=== PATIENT | female | born 1965 | race Caucasian/White ===

== ENCOUNTER 2023-07-24 09:41 | Outpatient (CLI) | payer OTHER, SELFPAY ==
[2023-07-24 16:28] LABS: SARS PCR* Negative SARS-CoV-2 (Negative)
== END 2023-07-24 09:42 | disposition home or self-care (01) ==
LOC: KYNREF 09:41
PROVIDERS: PCP Nurse Practitioner Family; Visit Provider Nurse Practitioner Family
DX: Z11.52 Encounter for screening for COVID-19 (principal); J11.1 Influenza due to unidentified influenza virus with other respiratory manifestations
CPT/HCPCS: 87635

== ENCOUNTER 2024-06-02 08:55 | Outpatient (CLI) | payer OTHER, SELFPAY | END 2024-06-02 08:56 | disposition home or self-care (01) | PROVIDERS: PCP Nurse Practitioner Family; Visit Provider Nurse Practitioner Family | DX: Z86.39 Personal history of other endocrine, nutritional and metabolic disease (principal); Z13.220 Encounter for screening for lipoid disorders; Z13.29 Encounter for screening for other suspected endocrine disorder | CPT/HCPCS: 80061; 84443 ==

== ENCOUNTER 2024-09-22 17:09 | Outpatient (CLI) | payer OTHER, SELFPAY | END 2024-09-22 17:10 | disposition home or self-care (01) | PROVIDERS: PCP Nurse Practitioner Family; Visit Provider Nurse Practitioner Family | DX: E78.5 Hyperlipidemia, unspecified (principal) | CPT/HCPCS: 80061 ==

== ENCOUNTER 2024-12-29 10:40 | Outpatient (CLI) | payer OTHER, SELFPAY ==
--- NOTE | 2024-12-29 11:15 | CRLHL7_ITS ---
For Patients: As a result of the Century Cures Act, medical imaging exams and procedure reports are released immediately into your electronic medical record. You may view this report before your referring provider. If you have questions, please contact your health care provider. Indication: Bilateral lower extremity pain and swelling after recent traveling. Technique: Real-time longitudinal and transverse sonographic grayscale imaging with and without compression, as well as color, duplex, and spectral Doppler imaging before and after augmentation, was obtained of the deep system of the bilateral lower extremities, including the common femoral, femoral, popliteal, posterior tibial, and peroneal veins. Comparison: None. Findings: Right lower extremity: Common femoral vein: No evidence of thrombus. Femoral vein: No evidence of thrombus. Popliteal vein: No evidence of thrombus. Calf veins: Patent. Left lower extremity: Common femoral vein: No evidence of thrombus. Femoral vein: No evidence of thrombus. Popliteal vein: No evidence of thrombus. Calf veins: Patent. Varicose veins are visualized in the areas of pain and swelling without evidence of superficial venous thrombus, such as in the left lower calf and right distal thigh and below the ankle. Impression: 1. No ultrasound evidence of deep venous thrombosis. 2. Varicose veins are visualized in the areas of pain and swelling without evidence of superficial venous thrombus, such as in the left lower calf and right distal thigh and below the ankle. Dictated by Nikunj Trejo MD @ 12/29/2024 11:59:05 AM (Electronically Signed)
== END 2024-12-29 10:41 | disposition home or self-care (01) ==
LOC: US 10:42
PROVIDERS: PCP Nurse Practitioner Family; Visit Provider Nurse Practitioner Family
DX: M79.604 Pain in right leg (principal); I83.813 Varicose veins of bilateral lower extremities with pain; M79.605 Pain in left leg; M79.89 Other specified soft tissue disorders
CPT/HCPCS: 93970

== ENCOUNTER 2025-07-18 17:19 | Outpatient (CLI) | payer OTHER, SELFPAY | END 2025-07-18 17:20 | disposition home or self-care (01) | LOC: KYNREF 17:21 | PROVIDERS: PCP Nurse Practitioner Family; Visit Provider Nurse Practitioner Family | DX: R82.90 Unspecified abnormal findings in urine (principal) | CPT/HCPCS: 87086 ==

== ENCOUNTER 2025-07-20 09:47 | Outpatient (CLI) | payer OTHER, SELFPAY | END 2025-07-20 09:48 | disposition home or self-care (01) | PROVIDERS: PCP Nurse Practitioner Family; Visit Provider Nurse Practitioner Family | DX: Z00.00 Encounter for general adult medical examination without abnormal findings (principal); Z13.21 Encounter for screening for nutritional disorder; Z12.31 Encounter for screening mammogram for malignant neoplasm of breast | CPT/HCPCS: 80053; 80061; 82306; 84443; 85025 ==

== ENCOUNTER 2025-09-01 16:41 | Emergency (ER) | payer OTHER, SELFPAY ==
--- OUTSIDE RECORDS SUMMARY | 2025-09-01 16:43 | XMS_ITS | Clinical Summary ---
Author Organization [facility] Address [address] [place] [address] Care Team Providers Care Web Assistant Name Role Phone , [facility] Primary Care Provider [phone] Allergies Active Allergy Reactions Criticality Noted Date Comments Penicillins Hives 06/22/2007 Medications acetaminophen (TYLENOL) 325 mg tablet Take by mouth. Activ e sertraline (ZOLOFT) 50 mg tablet TAKE 1 & 1/2 (ONE & ONE-HALF) TABLETS BY MOUTH ONCE DAILY FOR DEPRESSION Active triamcinolone 0.5% (ARISTOCORT) 0.5 % cream APPLY TOPICALLY TWICE DAILY 4 Active albuterol HFA (PRO-AIR; VENTOLIN; PROVENTIL) 90 mcg/actuation inhalerIndications :Wheezing,SOB (shortness of breath) Inhale 1-2 Puffs by mouth every 4 hours if needed for Shortness Of Breath or Wheezing. 1 Each 4 Active benzonatate (TESSALON) 200 mg capsuleIndications :Cough, unspecified type Take 1 Capsule (200 mg) by mouth 3 times daily if needed for Cough. 21 Capsule 4 Active ondansetron (ZOFRAN ODT) 4 mg disintegrating tabletIndications: Nausea Place 1 Tablet (4 mg) on the tongue every 8 hours if needed for Nausea/Vomitin g. 15 Tablet 4 Active Active Problems Problem Noted Date Diagnosed Date Endometriosis, site unspecified 06/22/2007 Family History Medical History Relation Name Comments Heart Disease Brother 1 Heart Disease Brother 2 No Known Problems Brother 4 No Known Problems Brother 5 No Known Problems Brother 6 No Known Problems Brother 7 Heart failure Father Heart Disease Mother Hypertension Mother Stroke Mother No Known Problems Sister 1 No Known Problems Sister 2 No Known Problems Sister 3 No Known Problems Sister 4 No Known Problems Sister 5 Relation Name Status Comments Brother 1 Alive Brother 2 Alive Brother 3 Alive Brother 4 Alive Brother 5 Alive Brother 6 Alive Brother 7 Alive Father Mother Sister 1 Alive Sister 2 Alive Sister 3 Alive Sister 4 Alive Sister 5 Alive Social History Tobacco Use Types Packs/Day Years Used Date Smoking Tobacco: Never Smokeless Tobacco: Never Alcohol Use Standard Drinks/Week Comments No 0 (1 standard drink = 0.6 oz pur e alcohol) Comments No Sex and Gender Information Value Date Recorded Sex Assigned at Not on file Legal Sex Female 6:12 AM DEHYDROGENATION OPERATOR HEAD Gender Identity Not on file Sexual Orientation Not on file 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 Not on file Not on file Not on file Obstetrics History Para Term AB IAB SAB Ectopic Multiple Livin g Live Births 2 1 1 0 0 0 0 0 1 1 Date Outcome GA Total Labor Labor/2nd/3rd Weight Sex Type Anes PTL Morena A1 A5 Name Clin Term 2002 40w 0d 3.7 kg (8 lb 2.4 oz) F Vag Livin g Amaris Jesse son Delivery Location:[facility] Comments:Back Pain Last Filed Vital Signs Vital Sign Reading Time Taken Comments Blood Pressure 126/72 01/14/2024 5:45 PM CDT Pulse 80 01/14/2024 7:56 PM CDT Temperature 36.7 C (98 F) 01/14/2024 5:45 PM CDT Respiratory Rate 19 01/14/2024 7:56 PM CDT Oxygen Saturation 97% 01/14/2024 8:02 PM CDT Inhaled Oxygen Concentration - - Weight 91.1 kg (200 lb 12.8 oz) 01/14/2024 5:45 PM CDT Height 182.9 cm (6') 11/25/2017 11:33 AM DEHYDROGENATION OPERATOR HEAD Body Mass Index 27.23 11/25/2017 11:33 AM DEHYDROGENATION OPERATOR HEAD Plan of Treatment Health Maintenance Due Date Last Done Comments Tetanus booster 1977 HIV for age 15-65 1981 Hepatitis C screening for age 18-79 1984 Hepatitis B series for 19+ ( 1 of 3 - 19+ 3-dose series) 1985 Colonoscopy through age 75 2011 Lipids for age 45-75 2011 Mammogram for age 45-75 2011 Pneumococcal series for age 50+ (1 of 1 - PCV) 2016 Zoster (shingles) series for age 50+ (1 of 2) 2016 BMI (ht and wt on same day) for age 18+ 11/25/2018 0 11/25/2017 Depression screening for age 12+ 11/25/2018 11/25/19 18 Influenza Vaccine (#1) 2025 Pap test for age 21-65 06/02/2027 06/02/2024, 2023 RSV vaccine for adults or pr egnancy (1 - 1-dose 75+ series) 2041 Procedures Procedure Name Priority Date/Time Associated Diagnosis Comments EXTRACTOR PLANT OPERATOR THIN PREP PAP SCREEN IMAGED Routine 06/02/2024 9:15 AM CDT from Last 3 Months or Most Recently Relevant to Health Maintenance Results * EXTRACTOR PLANT OPERATOR THIN PREP PAP SCREEN IMAGED (06/02/2024 9:15 AM CDT) Case Report Gynecologic Cytology Report Case: [id number] Authorizing Provider: Renetta Mcmahon NP Collected: 06/02/2024 0915 Ordering Location: [facility] Received: 06/03/2024 1315 First Screen: Jannette Lew Specimen: EXTRACTOR PLANT OPERATOR ThinPrep Vial Screening, Cervical 06/14/2024 4:09 PM CDT [facility] INTERPRETATION/ RESULT NEGATIVE FOR INTRAEPITHELIAL LESION OR MALIGNANCY (NIL) (none) 06/14/2024 4:09 PM CDT [facility] at 1609 CDT SPECIMEN ADEQUACY Satisfactory for evaluation Endocervical component present 06/14/2024 4:09 PM CDT [facility] [employer] HPV REQUEST HPV and PAP 06/14/2024 4:09 PM CDT [facility] Date of LMP 06/14/2024 4:09 PM CDT [facility] Comment:uncertain Last Pap Date 06/14/2024 4:09 PM CDT [facility] Comment:uncertain Last Pap Result NIL 4:09 PM CDT [facility] Abnormal Pap or [place] Bx in last 5 years No 06/14/2024 4:09 PM CDT [facility] Menstrual Status Postmenopausal 06/14/2024 4:09 PM CDT [facility] To[place]a Bx Done Today No 06/14/2024 4:09 PM CDT [facility] Additional Information 06/14/2024 4:09 PM CDT [facility] Comment: Interpreted at [facility] - [address] [place] [address] [facility] [address], [place] [address] Automated Review Successful 06/14/2024 4:09 PM CDT [facility] Comment:Specimen processed s uccessfully by automated hotel attendant device, ThinPrep Imaging System, [employer] ANCILLARY TESTING EXTRACTOR PLANT OPERATOR HPV Ordered, Please see separate report 06/14/2024 4:09 PM CDT [facility] Note The pap test is a screening technique, not a diagnostic procedure. It is used primarily to screen for squamous cancers and precursor lesions. Published studies have shown that it is subject to both false negative and false positive results. The pap test should not be used as the sole means to diagnose or exclude pre-malignant and malignant lesions. 06/14/2024 4:09 PM CDT [facility] Other (Cervical) 06/02/2024 9:15 AM CDT 06/03/2024 1:15 PM CDT us Renetta Mcmahon NP PATHOLOGY/CYTOLOGY Final R esult [facility] [address] [place] [address], [place] from Last 3 Months or Most Recently Relevant to Health Maintenance Insurance [facility] [phone] (Work) CLINIC I.D #[id number] A/P [address] [address] [place] [address] Care Teams Web Assistant Relationship Specialty Start Date End Date Mu, [facility] [address] [place] [address] PCP - General 02/18/16
--- OUTSIDE RECORDS SUMMARY | 2025-09-01 16:43 | XMS_ITS | Encounter Summary ---
Author Organization [facility] Address [address] [place] [address] Care Team Providers Care Wheel Grinder Name Role Phone Jenny Barraza DNP Primary Care Provider Jenny Barraza DNP Unavailable [phone] Mauro Rodriguez PhD Unavailable [phone] Sreekanth Dietz PsyD Unavailable Unava ilable Encounter Details Date Type Department Care Team (Late st Contact Info) Description 02/03/2024 MyC Medical Advice [facility] Mental Health & Addiction [facility] [address] [facility] [address] [place] [address] Mauro Rodriguez, PhD [address] [place] [address] Social History Tobacco Use Types Packs/Day Years Used Date Smoking Tobacco: Never Smokeless Tobacco: Never Alcohol Use Standard Drinks/Week Comments Yes 0 (1 standard drink = 0.6 oz pur e alcohol) beer 6-8 a year PHQ-2 Answer Date Recorded PHQ-2 Score 0 05/09/2022 Adolescent Education Answer Date Record ed Getting School Help Needed Not on file 06/26 Comments No Sex and Gender Information Value Date Recorded Sex Assigned at Female 01/24/2021 10:36 AM CDT Legal Sex Female 3:27 AM MANAGER SALT Gender Identity Female 01/24/2021 10:36 AM CDT Sexual Orientation Straight 01/24/2021 10 :36 AM CDT documented as of this encounter Plan of Treatment Not on file documented as of this encounter Visit Diagnoses Not on filedocumented in this encounter Additional Health Concerns Assessment Noted Time PHQ-9 Depression Total Score: 3 02/27/20 9:14 AM CDT documented as of this encounter Care Teams Wheel Grinder Relationship Specialty Start Date End Date Jenny Barraza DNP PCP - General Nurse Practitioner - Family 01/26/19 Jenny Barraza DNP [address] [place] [address] Assigned PCP 12/09/20 06/26/25 Mauro Rodriguez, PhD [address] [place] [address] Assigned Behavioral Health Provider 08/25/21 01/24/25 Sreekanth Dietz PsyD Assigned Behavioral Health Provider 01/25/25 documented as of this encounter
--- OUTSIDE RECORDS SUMMARY | 2025-09-01 16:43 | XMS_ITS | Encounter Summary ---
Author Organization [facility] Address [address] [place] [address] Care Team Providers Care Insurance Auditor Name Role Phone Jenny Barraza DNP Primary Care Provider Jenny Barraza DNP Unavailable [phone] Mauro Rodriguez PhD Unavailable [phone] Sreekanth Dietz PsyD Unavailable Unava ilable Encounter Details Date Type Department Care Team (Late st Contact Info) Description 12/01/2024 MyC Medical Advice [address] [place] [address] Lauren Valverde, [facility] [address] [place] [address] [place] [address] Social History Tobacco Use Types Packs/Day Years Used Date Smoking Tobacco: Never Smokeless Tobacco: Never Alcohol Use Standard Drinks/Week Comments Yes 0 (1 standard drink = 0.6 oz pur e alcohol) beer 6-8 a year PHQ-2 Answer Date Recorded PHQ-2 Score 2 11/17/2024 Adolescent Education Answer Date Record ed Getting School Help Needed Not on file 06/26 Comments No Sex and Gender Information Value Date Recorded Sex Assigned at Female 01/24/2021 10:36 AM CDT Legal Sex Female 3:27 AM JAVA ENGINEER Gender Identity Female 01/24/2021 10:36 AM CDT Sexual Orientation Straight 01/24/2021 10 :36 AM CDT documented as of this encounter Plan of Treatment Not on file documented as of this encounter Visit Diagnoses Not on filedocumented in this encounter Additional Health Concerns Assessment Noted Time PHQ-9 Depression Total Score: 3 02/27/20 9:14 AM CDT documented as of this encounter Care Teams Insurance Auditor Relationship Specialty Start Date End Date Jenny Barraza DNP PCP - General Nurse Practitioner - Family 01/26/19 Jenny Barraza DNP [address] [place] [address] Assigned PCP 12/09/20 06/26/25 Mauro Rodriguez, PhD [address] [place] [address] Assigned Behavioral Health Provider 08/25/21 01/24/25 Sreekanth Dietz PsyD Assigned Behavioral Health Provider 01/25/25 documented as of this encounter
--- OUTSIDE RECORDS SUMMARY | 2025-09-01 16:43 | XMS_ITS | Encounter Summary ---
Author Organization [facility] Address [address] [place] [address] Care Team Providers Care Planner Name Role Phone To Sharma MD Primary Care Provider [phone] Jenny Barraza DNP Unavailable [phone] Jenny Barraza DNP Unavailable [phone] Jenny Barraza DNP Primary Care Provider [phone] Sukhdev Powers MD Unavailable [phone] Jenny Barraza DNP Unavailable [phone] Mauro Rodriguez PhD Unavailable [phone] Sreekanth DietzyD Unavailable Unava ilable Encounter Details Date Type Department Care Team (Late st Contact Info) Description 11/29/2018 MyC Medical Advice [address] [address] Mickie Gurrola, RADIO NEWS ANCHOR Social History Tobacco Use Types Packs/Day Years Used Date Smoking Tobacco: Never Smokeless Tobacco: Never Alcohol Use Standard Drinks/Week Comments Yes 0 (1 standard drink = 0.6 oz pur e alcohol) beer 6-8 a year PHQ-2 Answer Date Recorded PHQ-2 Score 0 10/12/2018 Comments No Sex and Gender Information Value Date Recorded Sex Assigned at Female 01/24/2021 10:36 AM CDT Legal Sex Female 3:27 AM EXECUTIVE DIRECTOR GLOBAL BRAND MARKETING Gender Identity Female 01/24/2021 10:36 AM CDT Sexual Orientation Straight 01/24/2021 10 :36 AM CDT documented as of this encounter Plan of Treatment Not on file documented as of this encounter Visit Diagnoses Not on filedocumented in this encounter Additional Health Concerns Infection Onset Date Last Indicated Resolved Time Rule Out COVID-19 07/09/2020 07/09/2020 07/10/2020 2:01 PM CDT Rule Out COVID-19 01/30/2021 01/30/2021 01/31/2021 1:12 PM CDT COVID-19 01/30/2021 01/30/2021 02/20/2021 11:4 0 PM CDT Rule Out COVID-19 10/07/2021 10/07/2021 10/08/2021 5:05 PM EXECUTIVE DIRECTOR GLOBAL BRAND MARKETING Assessment Noted Time PHQ-9 Depression Total Score: 4 11/05/19 19 3:23 PM EXECUTIVE DIRECTOR GLOBAL BRAND MARKETING documented as of this encounter Care Teams Planner Relationship Specialty Start Date End Date To Sharma MD PCP - General Internal Medicine 02/02/17 01/25/19 Jenny Barraza DNP [address] [place] [address] PCP - Assigned PCP 10/17/18 12/07/18 Jenny Barraza DNP [address] [place] [address] PCP - General Nurse Practitioner - Family 01/26/19 Jenny Barraza DNP [address] [place] [address] Assigned PCP 10/17/18 12/08/20 Sukhdev Powers MD [facility] [place] [address] Assigned Surgical Provider 07/27/20 12/18/20 Jenny Barraza DNP [address] [place] [address] Assigned PCP 12/09/20 06/26/25 Mauro Rodriguez, PhD [facility] [place] [address] Assigned Behavioral Health Provider 08/25/21 01/24/25 Sreekanth Dietz PsyD Assigned Behavioral Health Provider 01/25/25 documented as of this encounter
--- OUTSIDE RECORDS SUMMARY | 2025-09-01 16:43 | XMS_ITS | Encounter Summary ---
Author Organization [facility] Address [address] [place] [address] Care Team Providers Care Sleeve Separator Name Role Phone Jenny Barraza DNP Primary Care Provider [phone] Jenny Barraza DNP Unavailable [phone] Mauro Rodriguez PhD Unavailable [phone] Sreekanth Dietz PsyD Unavailable Unava ilable Encounter Details Date Type Department Care Team (Late st Contact Info) Description 05/23/2022 MyC Medical Advice [facility] [address] [place] [address] Jenny Barraza DNP [address] [place] [address] [id number] Social History Tobacco Use Types Packs/Day Years Used Date Smoking Tobacco: Never Smokeless Tobacco: Never Alcohol Use Standard Drinks/Week Comments Yes 0 (1 standard drink = 0.6 oz pur e alcohol) beer 6-8 a year PHQ-2 Answer Date Recorded PHQ-2 Score 0 05/09/2022 Comments No Sex and Gender Information Value Date Recorded Sex Assigned at Female 01/24/2021 10:36 AM CDT Legal Sex Female 3:27 AM TEST FACILITY ENGINEER Gender Identity Female 01/24/2021 10:36 AM CDT Sexual Orientation Straight 01/24/2021 10 :36 AM CDT COVID-19 Exposure Response Date Recorded In the last 10 days, have yo u been in contact with someone who was confirmed or suspected to have Coronavirus/COVID-19? No / Unsure 05/20/2022 3:32 PM CDT documented as of this encounter Plan of Treatment Not on file documented as of this encounter Visit Diagnoses Not on filedocumented in this encounter Additional Health Concerns Assessment Noted Time PHQ-9 Depression Total Score: 3 02/27/20 9:14 AM CDT documented as of this encounter Care Teams Sleeve Separator Relationship Specialty Start Date End Date Jenny Barraza DNP PCP - General Nurse Practitioner - Family 01/26/19 Jenny Barraza DNP [address] [place] [address] Assigned PCP 12/09/20 06/26/25 Mauro Rodriguez, PhD [address] [place] [address] Assigned Behavioral Health Provider 08/25/21 01/24/25 Sreekanth Dietz PsyD Assigned Behavioral Health Provider 01/25/25 documented as of this encounter
--- OUTSIDE RECORDS SUMMARY | 2025-09-01 16:43 | XMS_ITS | Encounter Summary ---
Author Organization [facility] Address [address] [place] [address] Care Team Providers Care Rug Scratcher Name Role Phone Jenny Barraza DNP Primary Care Provider [phone] Jenny Barraza DNP Unavailable [phone] Mauro Rodriguez PhD Unavailable Sreekanth Dietz PsyD Unavailable Unava ilable Encounter Details Date Type Department Care Team (Late st Contact Info) Description 05/23/2022 MyC Medical Advice [facility] [address] [place] [address] Jenny Barraza DNP [address] [place] [id number] Social History Tobacco Use Types Packs/Day Years [...] AM CDT Legal Sex Female 3:27 AM SENIOR SQL SERVER DATABASE DEVELOPER Gender Identity Female 01/24/2021 10:36 AM CDT [...] documented as of this encounter Care Teams Rug Scratcher Relationship Specialty Start Date End Date Jenny Barraza DNP PCP - General Nurse Practitioner - Family 01/26/19 Jenny Barraza DNP [address] [place] [address] Assigned PCP 12/09/20 06/26/25 Mauro Rodriguez, PhD [address] [place] [address] Assigned Behavioral Health Provider 08/25/21 01/24/25 Sreekanth Dietz PsyD Assigned Behavioral Health Provider 01/25/25 documented as of this encounter
--- OUTSIDE RECORDS SUMMARY | 2025-09-01 16:43 | XMS_ITS | Encounter Summary ---
Author Organization [facility] Address [address] [place] [address] Care Team Providers Care Warehouse Unloader Name Role Phone Jenny Barraza DNP Primary Care Provider Jenny Barraza DNP Unavailable [phone] Sreekanth Dietz PsyD Unavailable Unava ilable Encounter Details Date Type Department Care Team (Late st Contact Info) Description 01/26/2025 [facility] Extended Documentation [facility] Mental Health & Addiction [facility] [address] [place] [phone] Sreekanth Dietz PsyD Social History Tobacco Use Types Packs/Day Years Used Date Smoking Tobacco: Never Smokeless Tobacco: Never Alcohol Use Standard Drinks/Week Comments Yes 0 (1 standard drink = 0.6 oz pur e alcohol) beer 6-8 a year PHQ-2 Answer Date Recorded PHQ-2 Score 1 01/26/2025 Adolescent Education Answer Date Record ed Getting School Help Needed Not on file 06/26 Comments No Sex and Gender Information Value Date Recorded Sex Assigned at Female 01/24/2021 10:36 AM CDT Legal Sex Female 3:27 AM SCHOOL ADMISSIONS REPRESENTATIVE Gender Identity Female 01/24/2021 10:36 AM CDT Sexual Orientation Straight 01/24/2021 10 :36 AM CDT documented as of this encounter Plan of Treatment Not on file documented as of this encounter Visit Diagnoses Not on filedocumented in this encounter Additional Health Concerns Assessment Noted Time PHQ-9 Depression Total Score: 3 02/27/20 22 9:14 AM CDT documented as of this encounter Care Teams Warehouse Unloader Relationship Specialty Start Date End Date Jenny Barraza DNP PCP - General Nurse Practitioner - Family 01/26/19 Jenny Barraza DNP [address] [place] [address] Assigned PCP 12/09/20 06/26/25 Sreekanth Dietz PsyD Assigned Behavioral Health Provider 01/25/25 documented as of this encounter
--- OUTSIDE RECORDS SUMMARY | 2025-09-01 16:43 | XMS_ITS | Encounter Summary ---
Author Organization [facility] Address [address] [place] [address] Care Team Providers Care Machine Ii Coremaker Name Role Phone Jenny Barraza DNP Primary Care Provider [phone] Jenny Barraza DNP Unavailable Mauro Rodriguez PhD Unavailable Sreekanth Dietz PsyD Unavailable Unava ilable Reason for Visit * Reason Comments Medication Refill Encounter Details Date Type Department Care Team (Late st Contact Info) Description 05/20/2021 Refill [facility] [address] [place] [phone] Jenny Barraza DNP [address] [place] [address] Medication Refill Social History Tobacco Use Types Packs/Day Years Used Date Smoking Tobacco: Never Smokeless Tobacco: Never Alcohol Use Standard Drinks/Week Comments Yes 0 (1 standard drink = 0.6 oz pur e alcohol) beer 6-8 a year PHQ-2 Answer Date Recorded PHQ-2 Score 0 11/23/2020 Comments No Sex and Gender Information Value Date Recorded Sex Assigned at Female 01/24/2021 10:36 AM CDT Legal Sex Female 3:27 AM WEATHER ALGORITHM SCIENTIST Gender Identity Female 01/24/2021 10:36 AM CDT Sexual Orientation Straight 01/24/2021 10 :36 AM CDT COVID-19 Exposure Response Date Recorded In the last month, have you been in contact with someone who was confirmed or suspected to have Coronavirus / COVID-19? No / Unsure 05/06/2021 12:20 PM CDT documented as of this encounter Miscellaneous Notes * Telephone Encounter - Mickie Mendez RN - 05/21/2021 2:57 PM CDT Patient stopped at clinic asking for refill of zoloft. She has 3 tabs left. She reports the medication is working well and is on the 50 mg daily. She has F/U appt on 05/29/21. Prescription approved per [facility] Refill Protocol. Mickie Lopez RN documented in this encounter Plan of Treatment Not on file documented as of this encounter Visit Diagnoses Diagnosis TA (generalized anxiety disorder) Generalized anxiety disorder documented in this encounter Additional Health Concerns Infection Onset Date Last Indicated Resolved Time Rule Out COVID-19 10/07/2021 10/07/2021 10/08/2021 5:05 PM WEATHER ALGORITHM SCIENTIST Assessment Noted Time PHQ-9 Depression Total Score: 0 11/28/19 2:41 PM WEATHER ALGORITHM SCIENTIST documented as of this encounter Care Teams Machine Ii Coremaker Relationship Specialty Start Date End Date Jenny Barraza DNP PCP - General Nurse Practitioner - Family 01/26/19 Jenny Barraza DNP [address] [place] [address] Assigned PCP 12/09/20 06/26/25 Mauro Rodriguez, PhD [address] [place] [address] Assigned Behavioral Health Provider 08/25/21 01/24/25 Sreekanth Dietz PsyD Assigned Behavioral Health Provider 01/25/25 documented as of this encounter
--- OUTSIDE RECORDS SUMMARY | 2025-09-01 16:43 | XMS_ITS | Encounter Summary ---
Author Organization [facility] Address [address] [place] [address] Care Team Providers Care Chief Nursing Executive Name Role Phone Iman Cardona MD Primary Care Provider U Jessica Bernard MD Primary Care Provider [phone] None, Fvl Primary Care Provider Unavailabl To Block MD Primary Care Provider [phone] Kyleigh Landry APRN INFORMATION CLERK CASHIER Unavailable Jenny Barraza DNP Unavailable [phone] Jenny Barraza DNP Unavailable [phone] Jenny Barraza DNP Primary Care Provider [phone] Sukhdev Powers MD Unavailable + [phone] Jenny Barraza DNP Unavailable [phone] Mauro Rodriguez PhD Unavailable [phone] Sreekanth Dietz Unavailable Unava ilable Encounter Details Date Type Department Care Team (Latest Contact Info) Description 07/05/2007 [facility] Jessica Culver MD XXX RETIRED XXX DO NOT USE [facility] [id number] Social History Tobacco Use Types Packs/Day Years Used Date Smoking Tobacco: Never Smokeless Tobacco: Never Alcohol Use Standard Drinks/Week Comments Yes 0 (1 standard drink = 0.6 oz pur e alcohol) beer 6-8 a year Comments No Sex and Gender Information Value Date Recorded Sex Assigned at Female 01/24/2021 10:36 AM CDT Legal Sex Female 3:27 AM DERRICK HELPER Gender Identity Female 01/24/2021 10:36 AM CDT [...] Out COVID-19 10/07/2021 10/07/2021 10/08/2021 5:05 PM DERRICK HELPER documented as of this encounter Care Teams Chief Nursing Executive Relationship Specialty Start Date End Date Iman Cardona MD PCP - General 01/28/08 01/28/17 Jessica Stringer MD XXX RET[place] [address] PCP - General 12/26/05 01/27/08 None, Fvl PCP - General 01/29/17 02/01/17 To Sharma MD PCP - General Internal Medicine 02/02/17 01/25/19 yKleigh Landry APRN CNP [address] [place] [address] PCP - Assigned PCP 06/27/18 10/16/18 Jenny Barraza DNP [address] [place] [address] PCP - Assigned PCP 10/17/18 12/07/18 Jenny Barraza DNP [address] [place] [address] PCP - General Nurse Practitioner - Family 01/26/19 Jenny Barraza DNP [address] [place] [address] Assigned PCP 10/17/18 12/08/20 Sukhdev Powers MD [address] [place] [address] Assigned Surgical Provider 07/27/20 12/18/20 Jenny Barraza DNP [address] [place] [address] Assigned PCP 12/09/20 06/26/25 Mauro Rodriguez, PhD [address] [place] [address] Assigned Behavioral Health Provider 08/25/21 01/24/25 Sreekanth Dietz PsyD Assigned Behavioral Health Provider 01/25/25 documented as of this encounter
--- OUTSIDE RECORDS SUMMARY | 2025-09-01 16:43 | XMS_ITS | Clinical Summary ---
Author Organization [facility] Address [address] [place] [address] Care Team Providers Care Mail Courier Name Role Phone Allen Henry LAMONT Primary Care Provider [phone] Sreekanth Dietz PsyD Unavailable Unava ilable Allergies Active Allergy Reactions Criticality Noted Date Comments Penicillins Hives 07/21/2005 Medications triamcinolone (KENALOG) 0.1 % external creamIndication s:Dermatitis Apply topically 2 times daily 80 g 1 Active acetaminophen (TYLENOL) 500 MG tablet Take 1-2 tablets (500-1,000 mg) by mouth every 6 hours as needed for mild pain 1 Active ibuprofen (ADVIL/MOTRIN) 200 MG tablet Take 400 mg by mouth every 4 hours as needed for mild pain 1 Active cyclobenzaprine (FLEXERIL) 5 MG tabletIndicatio ns:Strain of neck muscle, subsequent encounter,Thora cic myofascial strain, subsequent encounter Take 1 tablet (5 mg) by mouth 3 times daily as needed for muscle spasms 30 tablet 1 Active Vitamin D3 (CHOLECALCIFERO L) 125 MCG (5000 UT) tablet Take by mouth daily Active sertraline (ZOLOFT) 50 MG tabletIndicatio ns:TA (generalized anxiety disorder) Take 1.5 tablets (75 mg) by mouth daily 135 tablet 2 Active Active Problems Problem Noted Date Diagnosed Date TA (generalized anxiety disorder) 02/26/2022 Seasonal allergic rhinitis 07/11/2015 CARDIOVASCULAR SCREENING; LDL GOAL LESS THAN 160 08/04/2010 Thyroiditis 02/12/2009 Overview (02/12/2009): Normalized thryoids over course of 2008 see epic results Female pelvic pain 08/03/2008 Overview (07/05/2012): (Problem list name updated by automated process. Provider to review and confirm.) Fatigue 08/03/2008 Hemorrhage of rectum and anus 02/01/2008 Overview (02/12/2009): 1 Endometriosis 10/29/2005 Overview (07/05/2015): Problem list name updated by automated process. Provider to review Resolved Problems Problem Noted Date Diagnosed Date Resolved Date Abdominal pain, generalized 10/29/2005 01/04/2008 Immunizations Immunization Administration Dates Next Due Influenza (IIV3) PF 06/12/2011, 8,08/04/2005,2001 Influenza Vaccine 18-64 (Flublok) 07/06/2020, Nasal Influenza Vaccine 2-49 (FluMist) 11/06/2014 TD,PF 7+ (Tenivac) 08/16/2002 TDAP Vaccine (Adacel) 05/23/2015 Family History Medical History Relation Comments Coronary Artery Disease Brother 2 C.A.D. Brother 3 C.A.D. Brother 4 Cerebrovascular Disease Father 78 C.A.D. Maternal Grandfather C.A.D. Mother Diabetes Mother Heart Disease Mother C.A.D. Paternal Grandfather C.A.D. Paternal Grandmother Diabetes Sister 1 Heart Disease Sister 1 Relation Status Comments Brother 1 Alive Brother 2 Brother 3 Alive Brother 4 Alive Brother 5 Alive Brother 6 Alive Brother 7 Alive Daughter Alive Father Maternal Grandfather Maternal Grandmother Mother Paternal Grandfather Paternal Grandmother Sister 1 Alive Sister 2 Alive Sister [...] AM CDT Legal Sex Female 3:27 AM AERIAL LINEMAN Gender Identity Female 01/24/2021 10:36 AM CDT Sexual Orientation Straight 01/24/2021 10 :36 AM CDT Last Filed Vital Signs Vital Sign Reading Time Taken Comments Blood Pressure 128/69 05/09/2022 8:40 AM CDT Pulse 65 05/09/2022 8:40 AM CDT Temperature 36.1 C (97 F) 05/09/2022 8:40 AM CDT Respiratory Rate 24 05/09/2022 8:40 AM CDT Oxygen Saturation 97% 04/03/2022 2:03 PM CDT Inhaled Oxygen Concentration - - Weight 87.9 kg (193 lb 12.8 oz) 05/09/2022 8:40 AM CDT Height 182.9 cm (6') 05/09/2022 8:40 AM CDT Body Mass Index 26.28 05/09/2022 8:40 AM CDT Plan of Treatment Health Maintenance Due Date Last Done Comments CT COLONOGRAPHY 1966 FIT 1966 FLEX SIG 1966 sDNA (Cologuard) 1966 HIV SCREENING 1981 HEPATITIS C SCREENING 1984 HEPATITIS B VACCINE (1 of 3 - 19+ 3-dose series) 1985 PNEUMOCOCCAL VACCINE 50+ YEARS (1 of 1 - PCV) 2016 ZOSTER VACCINE (1 of 2) 2016 PHQ-9 08/29/2022 02/26/2022, 0804/2021, 11/23/2019, Additional history exists ANNUAL REVIEW OF HM ORDERS 02/26/2023 02/26/2022 YEARLY PREVENTIVE VISIT 05/09/2023 05/09/20, 11/23/2020, 04/27/2019, Additional history exists DIABETES SCREENING 04/22/2024 04/22/2021, 0 04/19/2021, 11/23/2020, Additional history exists MAMMO SCREENING 05/13/2024 05/13/2022, 04/0 03/2021, 12/07/2019, Additional history exists DTAP/TDAP/TD VACCINE (2 - Td or Tdap) 05/23/2025 05/23/2015, 08/16/2002 COVID-19 VACCINE ( season) 2025 03/14/2021, 02/19/2021 INFLUENZA VACCINE (#1) 2025 , 11/04/2019, 11/06/2014, Additional history exists ADVANCE CARE PLANNING 11/23/2025 11/23/2020 LIPID 05/09/2027 05/09/2022, 01/04, 05/23/2015, Additional history exists HPV TEST 06/02/2029 06/02/2024, 11/05, 05/23/2015 PAP 06/02/2029 06/02/2024, 05/06, 11/23/2020, Additional history exists COLONOSCOPY 05/06/2031 05/06/2021, 0811/2020, 02/01/2008, Additional history exists COLORECTAL CANCER SCREENING 05/06/2031 DEPRESSION ACTION PLAN Completed 04/27/2019 HPV VACCINE (No Doses Required) Completed MENINGITIS VACCINE Aged Out No longer eligible based on patient's age to complete this topic Procedures Procedure Name Priority Date/Time Associated Diagnosis Comments MA SCREENING BILATERAL W/ EMRE Routine 05/13/2022 2:36 PM CDT Encounter for screening mammogram for breast cancer LIPID REFLEX TO DIRECT LDL PANEL Routine 05/09/2022 9:41 AM CDT Screening for hyperlipidemia COLONOSCOPY Routine 05/06/2021 1:19 PM CDT BASIC METABOLIC PANEL STAT 04/22/2021 2:53 PM CDT PAP IMAGED THIN LAYER SCREEN Routine 11/23/2020 1:50 PM AERIAL LINEMAN Routine general medical examination at a health care facility HPV HIGH RISK TYPES DNA CERVICAL Routine 11/23/2020 1:50 PM AERIAL LINEMAN Routine general medical examination at a health care facility Screening for cervical cancer from Last 3 Months or Most Recently Relevant to Health Maintenance Results * MA Screen Bilateral w/Emre (05/13/2022 2:36 PM CDT) Anatomical Region Laterality Modality Breast Bilateral Mammography Narrative 05/13/2022 2:46 PM CDT BILATERAL FULL FIELD DIGITAL SCREENING MAMMOGRAM WITH TOMOSYNTHESIS Performed on: 05/13/22 Compared to: 01/08/2021 and 12/07/2019 Technique: This study was evaluated with the assistance of Computer-Aided Detection. Breast Tomosynthesis was used in interpretation. Findings: The breasts are heterogeneously dense, which may obscure small masses. There is no radiographic evidence of malignancy. IMPRESSION: ACR BI-RADS Category 1: Negative RECOMMENDED FOLLOW-UP: Annual routine screening mammogram The results and recommendations of this examination will be communicated to the patient. Allen Henry [facility] MAMMOGRAPHY ORDERABLES Final Result * (ABNORMAL) Lipid panel reflex to direct LDL Non-fasting (05/09/2022 9:41 AM CDT) Cholesterol 238(H) <200 mg/dL 05/09/2022 3:03 PM T [facility] Triglycerides 139 <150 mg/dL 05/09/2022 3:03 PM CDT [facility] Direct Measure HDL 47(L) >=50 mg/dL 05/09/2022 3:03 PM [facility] LDL Cholesterol Calculated 163(H) <=100 mg/dL 05/09/2022 3:03 PM T [facility] Non HDL Cholesterol 191(H) <130 mg/dL 05/09/2022 3:03 PM T [facility] Patient Fasting > 8hrs? Unknown 05/09/2022 3:03 PM [facility] Blood STRUCTURE OF RIGHT UPPER LIMB / Unknown Venipuncture / Unknown 05/09/2022 9:41 AM CDT 05/09/2022 9:45 AM CDT Narrative [facility] - 05/09/2022 3:03 PM CDT Cholesterol Desirable: <200 mg/dL Triglycerides Normal: Less than 150 mg/dL Borderline High: 150-199 mg/dL High: 200-499 mg/dL Very High: Greater than or equal to 500 mg/dL Direct Measure HDL Female: Greater than or equal to 50 mg/dL Male: Greater than or equal to 40 mg/dL LDL Cholesterol Desirable: <100mg/dL Above Desirable: 100-129 mg/dL Borderline High: 130-159 mg/dL High: 160-189 mg/dL Very High: >= 190 mg/dL Non HDL Cholesterol Desirable: 130 mg/dL Above Desirable: 130-159 mg/dL Borderline High: 160-189 mg/dL High: 190-219 mg/dL Very High: Greater than or equal to 220 mg/dL us Allen Henry DNP LAB - BLOOD ORDERABLES Fin al Result [facility] [address] [facility] [place]. Room [address] [place] [address] [phone] * COLONOSCOPY (05/06/2021 1:19 PM CDT) COLONOSCOPY Patient Name: Kapil Pena Procedure Date: 05/06/2021 1:19 PM Date of : 1965 Admit Type: Outpatient Age: 55 Gender: Female Attending MD: Kenneth Salinas MD Total Sedation Time: Procedure: Colonoscopy Indications: Screening for colorectal malignant neoplasm Providers: Kenneth Salinas MD Referring MD: Allen Henry Medicines: Monitored Anesthesia Care Complications: No immediate complications. Procedure: After obtaining informed consent, the colonoscope was passed under direct vision. Throughout the procedure, the patient's blood pressure, pulse, and oxygen saturations were monitored continuously. The Colonoscope was introduced through the anus and advanced to the cecum, identified by appendiceal orifice and ileocecal valve. The colonoscopy was performed without difficulty. The patient tolerated the procedure well. The quality of the bowel preparation was good. Findings: The perianal and digital rectal examinations were normal. The colon (entire examined portion) appeared normal. There is no endoscopic evidence of diverticula, mass or polyps in the entire colon. The retroflexed view of the distal rectum and anal verge was normal and showed no anal or rectal abnormalities. Impression: - The entire examined colon is normal. - The distal rectum and anal verge are normal on retroflexion view. - No specimens collected. Recommendation: - Discharge patient to home. - High fiber diet. - Repeat colonoscopy in 10 years for screening purposes. Signed electronically by Kenneth Salinas M.D. Kenneth Salinas MD 05/06/2021 1:46:01 PM I was physically present for the entire viewing portion of the exam. [id number] Salinas MD Number of Addenda: 0 Note Initiated On: 05/06/2021 1:19 PM Scope In: 1:32:48 PM Scope Out: 1:40:37 PM RADIOLOGY RESULTS 05/06/2021 1:19 PM CDT us Allen Henry DNP PROCEDURES Final Resu lt RADIOLOGY RESULTS * (ABNORMAL) Basic metabolic panel (04/22/2021 2:53 PM CDT) Sodium 134 133 - 144 mmol/L 04/22/2021 3:17 PM CDT [facility] Potassium (POCT) 4.0 3.4 - 5.3 mmol/L 04/22/2021 3:17 PM CDT [facility] Chloride (POCT) 104 94 - 109 mmol/L 04/22/2021 3:17 PM CDT [facility] Carbon Dioxide (CO2) (POCT) 27 20 - 32 mmol/L 04/22/2021 3:17 PM CDT [facility] Anion Gap (POCT) 3 3 - 14 mmol/L 04/22/2021 3:17 PM CDT [facility] Urea Nitrogen (POCT) 18 7 - 30 mg/dL 04/22/2021 3:17 PM CDT [facility] Creatinine 1.07(H) 0.52 - 1.04 mg/dL 04/22/2021 3:17 PM CDT [facility] Calcium 9.7 8.5 - 10.1 mg/dL 04/22/2021 3:17 PM CDT [facility] Glucose (POCT) 94 70 - 99 mg/dL 04/22/2021 3:17 PM CDT [facility] GFR Estimate 59(L) >60 mL/min/1.7 3m2 04/22/2021 3:17 PM CDT [facility] Comment:As of April 14, 2021, eGFR is calculated by the CKD-EPI creatinine equation, without race adjustment. eGFR can be influenced by muscle mass, exercise, and diet. The reported eGFR is an estimation only and is only applicable if the renal function is stable. Blood VENOUS LINE / Unknown VAD(CVC, PICC) / Unknown 04/22/2021 2:53 PM CDT 04/22/2021 2:57 PM CDT us Willie Ramsey MD LAB - BLOOD ORDERABLES Final Result [facility] [address] [facility] [place]. Room [address] [place] [address], [facility] [phone] * Pap imaged thin layer screen with HPV - recommended age 30 - 65 (11/23/2020 1:50 PM AERIAL LINEMAN) PAP SCOT Roger Report Patient Name: KAPIL PENA MR#: [id number] Specimen #: [id number] Collected: 11/23/2020 Received: 11/26/2020 Reported: 11/27/2020 15:22 Ordering Phy(s): ALLEN HENRY For improved result formatting, select 'View Enhanced Report Format' under Linked Documents section. SPECIMEN/STAIN PROCESS: Pap imaged thin layer prep screening (Surepath, FocalPoint with guided screening) Pap-Cyto x 1, HPV ordered x 1 SOURCE: Cervical, endocervical Pap imaged thin layer prep screening (Surepath, FocalPoint with guided screening) SPECIMEN ADEQUACY: Satisfactory for evaluation. -Transformation zone component present. CYTOLOGIC INTERPRETATION: Negative for intraepithelial lesion or malignancy Electronically signed out by: ANATOLIY Aggarwal (ASCP) CLINICAL HISTORY: A previous normal pap Date of Last Pap: 05/23/2015, Papanicolaou Test Limitations: Cervical cytology is a screening test with limited sensitivity; regular screening is critical for cancer prevention; Pap tests are primarily effective for the diagnosis/preventi on of squamous cell carcinoma, not adenocarcinomas or other cancers. COLLECTION SITE: Client: [facility] Location: [facility] () The [facility] of [facility], with the professional component performed at the [facility] [employer] [facility], [address] [place] [phone] ([phone]) LESLIE Cytologic material (specimen) 11/23/2020 1:50 PM AERIAL LINEMAN 11/26/2020 10:34 AM AERIAL LINEMAN us Allen Henry DNP LAB - OPTIME CLINICAL SPEC IMEN Final Result Performing Organization Address City/[facility]/ZIP Co de Phone Number COPATH * HPV High Risk Types DNA Cervical (11/23/2020 1:50 PM AERIAL LINEMAN) HPV Source SurePath 11/23/2020 1:51 PM AERIAL LINEMAN [facility] HPV 16 DNA Negative NEG^Nega tive 11/29/2020 9:38 AM AERIAL LINEMAN [facility] HPV 18 DNA Negative NEG^Nega tive 11/29/2020 9:38 AM AERIAL LINEMAN [facility] Other HR HPV Negative NEG^Nega tive 11/29/2020 9:38 AM AERIAL LINEMAN [facility] Final Diagnosis This patient's sample is negative for HPV DNA. 11/29/2020 9:38 AM AERIAL LINEMAN [facility] Comment: This test was developed and its performance characteristics determined by the [facility]. It has not been cleared or approved by the FDA. The laboratory is regulated under CLIA as qualified to perform high-complexity testing. This test is used for clinical purposes. It should not be regarded as investigational or for research. (Note) METHODOLOGY: The Yandel dayana 4800 system uses automated extraction, simultaneous amplification of HPV (L1 region) and beta-globin, followed by real time detection of fluorescent labeled HPV and beta globin using specific oligonucleotide probes . The test specifically identifies types HPV 16 DNA and HPV 18 DNA while concurrently detecting the rest of the high risk types (31, 33, 35, 39, 45, 51, 52, 56, 58, 59, 66 or 68). COMMENTS: This test is not intended for use as a screening device for women under age 30 with normal cervical cytology. Results should be correlated with cytologic and histologic findings. Close clinical followup is recommended. Specimen Description Cervical Cells 11/23/2020 1:51 PM AERIAL LINEMAN [facility] Cervical Cells 11/23/2020 1: 50 PM AERIAL LINEMAN 11/23/2020 2:34 PM AERIAL LINEMAN us Allen Henry DNP LAB - BLOOD ORDERABLES Fin al Result Performing Organization Address City/[facility]/ZIP Co de Phone Number [facility] [address] [place] [address] [facility] [address] [address] from Last 3 Months or Most Recently Relevant to Health Maintenance Insurance [facility] [employer] Care Teams Mail Courier Relationship Specialty Start Date End Date Allen Henry DNP PCP - General Nurse Practitioner - Family 01/26/19 Sreekanth Dietz PsyD Assigned Behavioral Health Provider 01/25/25
--- OUTSIDE RECORDS SUMMARY | 2025-09-01 16:43 | XMS_ITS | Data Portability ---
Author Organization [place] [facility] [place] Address [address] [place] [address] Care Team Providers Care Clearance Rep Name Role Phone FRANK CHRISTIAN Primary Care Provider Assessment Encounter Date Assessment Date Assessment LastModified by Organization Details LastModified Time 04/20/2025 04/20/2025 Time spent reviewing the patient s medical record, diagnostic studies, performing a focused history and physical exam, educating the patient regarding the natural history of disease as it pertains to the patient, discussing treatment options and alternatives, medical decision making, and chartin-59 minutes. Not available 04/20/2025 16:15:04 Plan of Treatment Reminders Order Date Submit Date Provider Last Modified By Organization Details Last Modified Time Details Appointments None record ed. Lab None record ed. Referral None record ed. Procedures None record ed. Surgeries None record ed. Imaging None record ed. Medication Orders None record ed. Patient TargetsNo targets recorded. Patient Instructions Encounter Date Encounter Id Patient Instructions Last Modified By Organization Details Last Modified Time 04/20/2025 [id number] PLAN: 1)Begin 6 week trial of conservative therapy with the addition of GCS 20-30mm Hg daily wear. GCS Rx provided today. If symptoms persist, proceed with the treatment plan including the following: endovenous radiofrequency ablation of saphenous vein(s), Varithena ablation of saphenous vein(s) followed by ultrasound guided foam sclerotherapy of tributary veins. Not available 04/20/2025 16:14:53 Reason for Referral None Reported. Procedures Surgical History Date Name Laterality Status Provider Name and Address Organization Details Recorded Time Colonoscopy completed Mamie Zarate MD [address] [place], [address], [facility] 04/20/2025 16:02:29 Imaging Results None recorded. Procedure Notes None recorded. Medical Equipment None Reported. Allergies Allergen ID Allergen Name Allergen Category Reaction Reaction Severity Criticality Documentation Date Start Date Code Code System Note Provider Name and Address Organization Details Recorded Time 15969 Product containin g penicilli n (product) medicatio n Not available Not available Not available 04/20/2025 42289 8001 SNOMED Mamie Zarate MD [address] [place], [phone], [facility] 16:03:46 Medications Name Sig Start Date Stop Date Status Note LastModified by Organization Details LastModified Time atorvastati n 20 mg tablet TAKE 1 TABLET BY MOUTH EVERY DAY AT BEDTIME 04/19 completed Not Available Not Available Not Available sertraline 100 mg tablet TAKE 1 TABLET BY MOUTH ONCE DAILY active Not Available Not Available No t Available sertraline 50 mg tablet TAKE 1 & 1/2 (ONE & ONE-HALF) TABLETS BY MOUTH ONCE DAILY FOR DEPRESSIV E DISORDER FOR 30 DAYS 04/19 completed Not Available Not Available Not Available Ventolin HFA 90 mcg/actuati on aerosol inhaler INHALE 1 TO 2 PUFFS BY MOUTH EVERY 4 HOURS NEEDED FOR SHORTNESS OF BREATH OR WHEEZING 04/19 completed Not Available Not Available Not Available Vitals None Recorded Social History Question Answer Notes LastModified by Organizat ion Details LastModified Time Tobacco Smoking Status Never Smoker Mamie Zarate MD [address] [place], [address], [facility] 04/20/2025 16:02:24 How Many Times Per Week Do You Exercise? 1-2 Times Per Week Information not available 04/20/2025 Sex: Unknown Functional Status Question Answer Note LastModified by Organizat ion Details LastModified Time What is your level of alcohol consumption? None Information not available 04/20/2025 Are you currently employed? 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 Moderate Information not available 04/20/2025 Mental Status None recorded. Family History Nothing Reported. Medical History Condition Response Eczema or Dermatitis Y Gynecological History Statement/Question Response How many childrens do you have? 1 Number of Miscarriages 0 Number of Pregnancies 1 Are you or planning to become p regnant? N Are you ? N Obstetrics History GPAL:G 0 P 0 0 0 0 Past Encounters Encounter ID Performer Location Encounter Start Date Encounter Closed Date Diagnosis/Indication Diagnosis SNOMED-CT Code Diagnosis ICD10 Code Diagnosis IMO Codes Diagnosis Note [id number] MD Truman Pollock [address] [place] [address] 04/20/2025 14:28:57 04/20/2025 16:29:31 Pain co-occurrent and due to varicose veins of bilateral legs [id number] I83.813 [id number] DUPLEX ULTRASOUND FINDINGS: Spectral doppler analysis shows abnormal reflux (>500msec) in the left great saphenous and small saphenous veins, right great saphenous and small saphenous veins and multiple bilateral tributary veins. The deep veins are patent with normal compressib ility and augmentati on. Bilateral deep venous insufficie ncy is absent. There is adequate venous capacity of the deep system. There is no significan t tortuosity or aneurysm of the refluxing saphenous veins which would impede catheter advancemen t. [id number] Mamie Zarate MD [facility] [address] [place] [address] 04/20/2025 14:28:58 04/20/2025 16:29:09 Pain co-occurrent and due to varicose veins of bilateral legs [id number] I83.813 [id number] DUPLEX ULTRASOUND FINDINGS: Spectral doppler analysis shows abnormal reflux (>500msec) in the left great saphenous and small saphenous veins, right great saphenous and small saphenous veins and multiple bilateral tributary veins. The deep veins are patent with normal compressib ility and augmentati on. Bilateral deep venous insufficie ncy is absent. There is adequate venous capacity of the deep system. There is no significan t tortuosity or aneurysm of the refluxing saphenous veins which would impede catheter advancemen t. ASSESSMENT : 1)Left lower extremity superficia l chronic venous insufficie ncy of the great saphenous and small saphenous veins and tributary veins with pain and inflammati on affecting activities of daily living. CEAP 4a VCSS 15 2)Right lower extremity superficia l chronic venous insufficie ncy of the great saphenous and small saphenous veins and tributary veins with pain and inflammati on affecting activities of daily living. CEAP 4a VCSS 15 3) Normal deep venous system without DVT 4) The patient has progressio n of symptoms despite conservati ve measures including: OTC GCS daily wear, avoiding long periods of sitting/st anding, regular daily exercise including moderate walking, weight control, OTC analgesics and leg elevation. Health Concerns Section Related Observation LastModified by Organization Detai ls LastModified Time None Recorded Concern Status LastModified by Organization Details LastModified Time None Recorded Advance Directives Directive None Recorded Payers Insurance Date Sequence Insurance Name Policy Number Policy [place] Covered Member ID [place] Member ID Guarantor Name 04/20/2025 1 *SELF PAY* Erum Pena 08/07/2025 1 [facility] [id number] Katherine Pena [id number] Katherine Pena 04/21/2025 1 [facility] [id number] Katherine Pena [id number] Katherine Pena Notes Date Note Type Note Provider Name and Address Organization Details Recorded Time 04/20/2025 text/html The patient is a 59yo female who presents with complaints of Bilateral lower extremity varicose veins and increasing symptoms for the past more than 5 years. The patient denies previous treatment for chronic venous disease. Symptoms include: pain, aching, cramping, restlessness, itching, burning, recurring swelling, spider veins, varicose veins, skin discoloration, rash, Complications related to vein disease: There is no history of- DVT, SVT, ulceration, cellulitis or phleborrhagia Symptom location: Bilateral, ankle/leg/thigh, right greater than left Symptom severity: severe 8/10; Symptoms occur with: prolonged sitting, prolonged standing, sleeping, all day, are worse later in the day ADLs affected by symptoms: -Sleep: interfere with patient's ability to fall asleep and cause patient to awaken from sleep frequently. -Exercise/activity: limit ability to exercise, including walking. -Work: Needs to take frequent breaks to walk and/or elevate legs. Conservative measures implemented without relief of symptoms: -avoidance of prolonged periods of sitting or standing, -regular exercise including moderate daily walking, -leg elevation, -weight control, has lost 42 lb -OTC analgesics:prn -GCS 20-30 mmHg OTC only Rx provided today Cyanoacrylate Adhesive Ablation screening: -Atopic Dermatitis/Eczema/P soriasis: Yes Mamie Zarate MD [address] [place], [address], [place] [facility] 04/20/2025 16:15:29 OBGyn Episode No OBEpisode recorded.
--- OUTSIDE RECORDS SUMMARY | 2025-09-01 16:43 | XMS_ITS | Encounter Summary ---
Author Organization [facility] Address [address] [place] [id number] Care Team Providers Care Tariff Expert Name Role Phone Jenny Barraza DNP Unavailable Jenny Barraza DNP Primary Care Provider Sukhdev Powers MD Unavailable Jenny Barraza DNP Unavailable [phone] Mauro Rodriguez PhD Unavailable [phone] Sreekanth Dietz PsyD Unavailable Unava ilable Encounter Details Date Type Department Care Team (Late st Contact Info) Description [place]/30/2020 [facility] [place] [address] [id number] Mickie Gurrola, [facility] Social History Tobacco Use Types Packs/Day Years Used Date Smoking Tobacco: Never Smokeless Tobacco: Never Alcohol Use Standard Drinks/Week Comments Yes 0 (1 standard drink = 0.6 oz pur e alcohol) beer 6-8 a year PHQ-2 Answer Date Recorded PHQ-2 Score 0 11/28/2019 Comments No Sex and Gender Information Value Date Recorded Sex Assigned at Female 01/24/2021 10:36 AM CDT Legal Sex 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 Gender Identity Female 01/24/2021 10:36 AM CDT [...] Out COVID-19 10/07/2021 10/07/2021 10/08/2021 5:05 PM 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 Assessment Noted Time PHQ-9 Depression Total Score: 0 11/28/19 2:41 PM 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 documented as of this encounter Care Teams Tariff Expert Relationship Specialty Start Date End Date Jenny Barraza DNP [address] [place] [address] PCP - General Nurse Practitioner - Family 01/26/19 Jenny Barraza DNP [address] [place] [address] Assigned PCP 10/17/18 12/08/20 Sukhdev Powers MD [facility] [place] [address] Assigned Surgical Provider 07/27/20 12/18/20 Jenny Barraza DNP [address] [place] [address] Assigned PCP 12/09/20 06/26/25 Mauro Rodriguez, PhD [facility] [place] [address] Assigned Behavioral Health Provider 08/25/21 01/24/25 Sreekanth Dietz PsyD Assigned Behavioral Health Provider 01/25/25 documented as of this encounter
[2025-09-01 16:44] VITALS: BP 154/81; PULSE 67; RESP 16; TEMP 36.4; O2SAT 100; BMI 23.7
--- NOTE | 2025-09-01 17:50 | ED_ITS ---
HPI - General Adult General Time Seen by Provider: 17:50 Date Seen: 09/01/25 Chief complaint: Extremity Pain/Injury, Lower Stated complaint: R foot ingrown toenail--coming off Time Seen by Provider: 09/01/25 17:50 Source: patient and RN notes reviewed Mode of arrival: ambulatory Limitations: no limitations History of Present Illness HPI narrative: This 59yo female is coming into the ED with request of removing her toenail on her right big toe. She notes that she has had an ingrown toenail for long time. She states she dropped something on this right great toe when she was younger. The nail has been abnormal since then. She was attempting to cut it off along that outside portion great toenail. It lifted off. The toenail is still attached along the medial corner. She notes it bled quite a bit yesterday when she attempted to cut it. She states her tetanus is up-to-date, denies anything like diabetes. She states that she has had this toenail be thickened for some time, was going to have surgery on up but never got it scheduled. No fevers or chills. Related Data Previous Rx's ?Medication ?Instructions ?Recorded triamcinolone acetonide 0.5 % 1 applic topical BID #30 grams 11/24/23 topical cream sertraline 100 mg tablet (Zoloft) 100 mg PO QDAY #90 t abs 07/20/25 sertraline 50 mg tablet 50 mg PO QDAY #90 tabs 07/20 atorvastatin 20 mg tablet (Lipitor) 20 mg PO QDAY #90 tabs 07/21/25 Allergies Allergy/AdvReac Type Severity Reaction Status Date / Time Penicillins Allergy Hives Verified 07/20/25 09:24 Review of Systems Narrative: As per HPI. PFSH PFS Medical History Hyperlipidemia ?E78.5 - Hyperlipidemia, unspecified (ICD-10) Surgical History History of colonoscopy ?Z98.890 - Other specified postprocedural states (ICD-10) Social History Smoking Status: Never smoker Exam Const: Vital Signs, click to edit/add: Vital Signs - 24 hr 09/01/25 16:44 Temperature 97.6 F Pulse Rate [Pulse Oximeter] 67 Respiratory Rate 16 Blood Pressure [Ri ght Upper Arm] 154/81 H Pulse Oximetry 100 Oxygen Delivery Me thod Room Air This patient is seen in exam room 5, lying comfortable on the bed. Her right foot is exposed on bed. There is no concerning skin erythema, neurovascular is intact. You can easily see that her right great toenail is thickened, shortened in length and lifts easily off the base of the nail bed, only seems to be attached along that medial corner. There is noted purulent discharge, no drainage, no significant swelling or erythema, no active bleeding. Patient consent was obtained for removal of this toenail completely. Was only attached along the base of the medial nail bed, the medial edge was up along with rest of the toenail. The toenail itself is thickened and dystrophic. 1.5 mL of plain 1% lidocaine was injected around that medial nail bed. With gloved fingers, I was simply able to just lightly pull the toenail off, she tolerated this well. The only bleeding that was present was coming from the injection site where I gave the lidocaine. This resolved with pressure. Documenting provider has reviewed patient's vital signs: yes Course Course ED Course: Will ask nursing staff to clean and bandage this. I do not feel that there is any evidence of infection. Patient was consented on the fact that her nail may never grow back, if it does it certainly is likely did grow back dystrophic again. I do not think that there was any other option but to remove this fully. The whole nail was nearly lifted and was certainly going to catch in pull on clothing like socks or continue to be bumped. Removal of the remainder of the attached toenail I believe was the only possible outcome for her. Vital Signs Vital signs: Initial Vital Signs Temperature 97.6 F 09/01/25 16:44 Temperature Source Temporal Artery Scan 09/01/25 16:44 Pulse Rate 67 09/01/25 16:44 Respiratory Rate 16 09/01/25 16:44 Blood Pressure 154/81 H 09/01/25 16:44 Blood Pressure Mean 105 09/01/25 16:44 Blood Pressure Position Sitting 09/01/25 16:44 Pulse Oximetry 100 09/01/25 16:44 Oxygen Delivery Method Room Air 09/01/25 16:44 Vital Signs Temperature 97.6 F 09/01/25 16:44 Pulse Rate 67 09/01/25 16:44 Respiratory Rate 16 09/01/25 16:44 Blood Pressure 154/81 H 09/01/25 16:44 Pulse Oximetry 100 09/01/25 16:44 Oxygen Delivery Method Room Air 09/01/25 16:44 Temperature 97.6 F 09/01/25 16:44 Pulse Rate 67 09/01/25 16:44 Respiratory Rate 16 09/01/25 16:44 Blood Pressure 154/81 H 09/01/25 16:44 Pulse Oximetry 100 09/01/25 16:44 Oxygen Delivery Method Room Air 09/01/25 16:44 Discharge Plan Discharge Clinical Impression: Avulsed toenail Patient Disposition: Home, Self-Care Condition: Stable Instructions: Nail Avulsion (ED) Additional Instructions: Your toenail most certainly would have come completely off as it was only minimally attached by the inner lower corner, basically barely hanging on. The underlying toenail archetecture was dysmorphic; thus, I think that it may be likely that your toenail may not grow back and if it does, will likely continue to look abnormal. May shower as usual. Use bandages and Bacitracin as needed. The bed that the toenail was overlying will typically become less tender and sensitive over time. Please schedule follow-up with your primary care provider or boxing trainer of choice if you have ongoing concerns or issues with this nail. Wear shoes that are comfortable, probably something that this toe doesn't rub on for the next 1-2 weeks or so. Activity Level: Activity as Tolerated Prescriptions: No Action triamcinolone acetonide 0.5 % cream 1 applic topical BID Qty: 30 1RF sertraline 50 mg tablet 50 mg PO QDAY Qty: 90 3RF Rx Instructions: 100 mg daily in addition to 50 mg daily sertraline [Zoloft] 100 mg tablet 100 mg PO QDAY Qty: 90 3RF Rx Instructions: 100 mg daily in addition to 50 mg daily atorvastatin [Lipitor] 20 mg tablet 20 mg PO QDAY Qty: 90 3RF Follow Up/Referrals: Renetta Mcmahon, COMMUNICATIONS PROGRAM MANAGER, SENIOR SOFTWARE SYSTEMS ENGINEER [Primary Care Provider, Family Practice] Stand Alone Forms: MyHealth Info Instructions
== END 2025-09-01 18:23 | disposition home or self-care (01) ==
PROVIDERS: Emergency Provider Family Medicine; PCP Nurse Practitioner Family
DX: L60.0 Ingrowing nail (principal)
CPT/HCPCS: 99282; 99283